=== PATIENT | female | born 2000 | race African-American/Black ===

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

== ENCOUNTER 2019-07-22 11:53 | Emergency (ER) | payer OTHER ==
[~2019-07-22] VITALS: Ht 165.1 cm; Wt 53.1 kg
[~2019-07-22 11:53] MED LIST changes: +NOHOMEMEDICATIONS
[2019-07-22] MEDS ORDERED: KEFLEX500 M1 PO (13:38)
[2019-07-22 13:49] VITALS: BP 100/62
== END 2019-07-22 13:49 | disposition home or self-care (01) ==
LOC: ER 11:53
DX: L03.113 Cellulitis of right upper limb (principal)

== ENCOUNTER 2019-10-24 19:38 | Emergency (ER) | payer OTHER ==
[~2019-10-24] VITALS: Ht 165.1 cm; Wt 54.0 kg
[~2019-10-24 19:38] MED LIST changes: +KEFLEX500 M1 PO
[2019-10-24] MEDS ORDERED: BACTRIM DS TAB1 EACH PO (22:16)
[2019-10-24] MEDS ORDERED: LIDOCAINE 2%2 %/5 GM TOP (22:18)
[2019-10-24 22:30] VITALS: BP 99/63
== END 2019-10-24 22:30 | disposition home or self-care (01) ==
LOC: ER 19:38
DX: N89.8 Other specified noninflammatory disorders of vagina (principal); Z90.89 Acquired absence of other organs; Z79.2 Long term (current) use of antibiotics

== ENCOUNTER 2020-07-03 16:07 | Emergency (ER) | payer OTHER ==
[~2020-07-03] VITALS: Ht 165.1 cm; Wt 49.9 kg
[~2020-07-03 16:07] MED LIST changes: +BACTRIM DS TAB1 EACH PO; +LIDOCAINE 2%2 %/5 GM TOP
[2020-07-03 16:21] VITALS: BP 123/78
[2020-07-03] MEDS ORDERED: AMOXICILLIN500 M1 PO (16:33)
== END 2020-07-03 16:50 | disposition home or self-care (01) ==
LOC: ER 16:07
DX: R51.9 Headache, unspecified (principal); K08.89 Other specified disorders of teeth and supporting structures; H66.91 Otitis media, unspecified, right ear; Z79.899 Other long term (current) drug therapy; Z90.89 Acquired absence of other organs